=== PATIENT | male | born 1980 | race Caucasian/White ===

== ENCOUNTER 2020-12-17 09:21 | Emergency (ER) | payer MEDICAID ==
[~2020-12-17] VITALS: Ht 185.4 cm; Wt 90.9 kg
[2020-12-17 09:58] VITALS: BP 145/100
--- NOTE | 2020-12-17 10:25 | NUR ---
PATIENT STATES HIS MOTHER CALLED AND HIS DOCTOR AT [facility] WANTS HIM TO GO TO [facility] TO BE TRANSFERRED TO [id number]
== END 2020-12-17 10:26 | disposition left against medical advice (07) ==
LOC: ER 09:22
DX: M54.89 Other dorsalgia (principal); Z53.21 Procedure and treatment not carried out due to patient leaving prior to being seen by health care provider

== ENCOUNTER 2020-12-17 23:20 | Emergency (ER) | payer MEDICAID ==
[~2020-12-17] VITALS: Ht 185.4 cm; Wt 85.3 kg
[2020-12-17 23:26] VITALS: BP 163/100
[2020-12-17] MEDS ORDERED: LIDOcaine 5% patch TP ONE (23:55)
[2020-12-17] MEDS ORDERED: ketorolac trometh inj. 60 MG/2 ML VIAL IM ONE (23:55)
[2020-12-17] MEDS ORDERED: metoclopramide 10mg tablet PO ONE (23:55)
== END 2020-12-18 00:33 | disposition home or self-care (01) ==
LOC: ER 23:21
DX: M54.5 Low back pain (principal); E11.9 Type 2 diabetes mellitus without complications; G89.29 Other chronic pain; F12.90 Cannabis use, unspecified, uncomplicated; F15.90 Other stimulant use, unspecified, uncomplicated; F14.90 Cocaine use, unspecified, uncomplicated; F11.90 Opioid use, unspecified, uncomplicated
CPT/HCPCS: 96372; 99283; J1885; J8597